=== PATIENT | female | born 1965 | race Caucasian/White ===

== ENCOUNTER 2022-07-01 13:30 | Emergency (ER) | payer BC ==
[~2022-07-01 13:30] MED LIST: PROBIOTIC1 EAC1 PO; SIMVASTATIN20 MG PO; ST. JOSEPH ASPI81 M1 PO; TRAZODONE HCL50 MG PO; ZEGERID 40 MG1 EACH PO
[2022-07-01] MEDS ORDERED: HYDROCODON-ACE1 EAC4 PO (16:57)
== END 2022-07-01 17:56 | disposition home or self-care (01) ==
LOC: ER1 13:30
DX: S52.571A Other intraarticular fracture of lower end of right radius, initial encounter for closed fracture (principal); K21.9 Gastro-esophageal reflux disease without esophagitis; E78.5 Hyperlipidemia, unspecified; Z88.0 Allergy status to penicillin; Z90.49 Acquired absence of other specified parts of digestive tract; Z90.710 Acquired absence of both cervix and uterus; Z88.8 Allergy status to other drugs, medicaments and biological substances; Z79.899 Other long term (current) drug therapy; V00.131A Fall from skateboard, initial encounter
CPT/HCPCS: 25605; 73110; 73200; 96372; 99284; J1100; J2270; J2795

== ENCOUNTER → 2022-07-07 | Day surgery (SDC) | payer BC ==
[~2022-07-07] MED LIST changes: +ACIPHEX20 MG PO; +DAILY VALUE1 EACH PO; +HYDROCODON-ACE1 EAC4 PO; +VITAMIN C500 M4 PO
== END | disposition home or self-care (01) ==
LOC: OR 05:28
DX: S52.571A Other intraarticular fracture of lower end of right radius, initial encounter for closed fracture (principal); W19.XXXA Unspecified fall, initial encounter; Y93.21 Activity, ice skating; E78.5 Hyperlipidemia, unspecified; K21.9 Gastro-esophageal reflux disease without esophagitis; Z79.82 Long term (current) use of aspirin; Z79.899 Other long term (current) drug therapy; Z88.0 Allergy status to penicillin
CPT/HCPCS: 73110; 76000; C1713; J0171; J1100; J1170; J1200; J1885; J2001; J2250; J2405; J2704; J2795; J3010; J3475; J7040